=== PATIENT | female | born 1990 | race Caucasian/White ===

== ENCOUNTER 2023-11-03 10:40 | Emergency (ER) | payer SELFPAY ==
[~2023-11-03] VITALS: Ht 157.5 cm; Wt 57.7 kg
[2023-11-03] MEDS ORDERED: ESTA0.25 PO (11:05)
[2023-11-03] MEDS ORDERED: EXCETAB32 PO (11:06)
[2023-11-03] MEDS: NS 1,000 ML IV ONE (13:38)
[2023-11-03] MEDS: METOCLOPRAMIDE INJ 10MG/2ML VIAL IV ONE (13:38)
[2023-11-03] MEDS: KETOROLAC 30 MG/ML 1ML VIAL IV ONE (13:39)
[2023-11-03] MEDS: diphenhydrAMINE 50MG/ML VIAL IV ONE (13:39)
[2023-11-03 13:54] LABS: BASO % 0.4 % (0.0-1.0); EOS # 0.3 10^3/uL (0.0-0.5); EOS % 3.8 % (0.0-3.0); HEMATOCRIT 42.4 % (36.0-47.0); HEMOGLOBIN 14.3 g/dl (12.0-15.5); LYMPH # 3.5 10^3/uL (1.5-5.0); LYMPH % 41.3 % (24.0-44.0); MEAN CORPUSCULAR HEMOGLOBIN 29.5 pg (27.0-33.0); MEAN CORPUSCULAR HGB CONC 33.7 g/dl (32.0-36.5); MEAN CORPUSCULAR VOLUME 87.6 fl (80.0-96.0); MONO # 0.6 10^3/uL (0.0-0.8); MONO % 6.6 % (2.0-8.0); NEUTROPHILS % 47.8 % (36.0-66.0); PLATELET COUNT, AUTOMATED 381 10^3/uL (150-450); RED BLOOD COUNT 4.84 10^6/uL (4.00-5.40); WHITE BLOOD COUNT 8.4 10^3/uL (4.0-10.0)
[2023-11-03 13:58] LABS: ERYTHROCYTE SEDIMENTATION RATE 9 mm/hr (0-20)
[2023-11-03 14:17] LABS: C REACTIVE PROTEIN QUANTITATIV < 0.40 MG/DL (<1.0)
[2023-11-03 14:18] LABS: BLOOD UREA NITROGEN 6 MG/DL (9-23); CALCIUM LEVEL 9.6 MG/DL (8.5-10.1); CARBON DIOXIDE LEVEL 27 MMOL/L (20-31); CHLORIDE LEVEL 106 MMOL/L (98-107); CREATININE FOR GFR 0.64 MG/DL (0.55-1.30); GLOMERULAR FILTRATION RATE > 60.0 (>60); GLUCOSE, FASTING 76 MG/DL (60-100); SODIUM LEVEL 141 MMOL/L (136-145)
[2023-11-03 14:22] LABS: HCG, SERUM QUALITATIVE NEGATIVE (NEGATIVE)
[2023-11-03 14:50] VITALS: BP 99/56; TEMP 98; O2SAT 99
== END 2023-11-03 14:51 | disposition home or self-care (01) ==
LOC: M ED 10:40
DX: G44.40 Drug-induced headache, not elsewhere classified, not intractable (principal); Z79.82 Long term (current) use of aspirin; Z79.899 Other long term (current) drug therapy
CPT/HCPCS: 80048; 84703; 85025; 85652; 86140; 96374; 96375; 99284; J1200; J1885; J2765